=== PATIENT | female | born 1955 | race African-American/Black ===

== ENCOUNTER 2017-02-10 19:40 | Inpatient (IN) | payer MEDICAID, OTHER ==
[~2017-02-10] VITALS: Ht 160 cm; Wt 92.3 kg
[2017-02-10] MEDS ORDERED: niCARdipine-D5W 0.1MG/ML DRIP 200 ML IV STA (20:00)
[2017-02-10] MEDS ORDERED: NALOXONE 2 MG SYG IV ONE ×2 (20:00→22:00)
[2017-02-10] MEDS ORDERED: SOD CHLORIDE 0.9% 500 ML IV STA (20:00)
[2017-02-10 20:39] LABS: ADD SCAN DIFF NO
[2017-02-10 20:42] LABS: BASOPHILS % 0.2 % (0.0-2.0); HEMATOCRIT 45.1 % (37.0-47.0); HEMOGLOBIN 15.1 g/dl (12.0-16.0); LYMPHOCYTES # 2.3 10^3/ul (0.8-2.9); LYMPHOCYTES % 19.9 % (15.0-51.0); MEAN CORPUSCULAR HEMOGLOBIN 31.1 pg (29.0-33.0); MEAN CORPUSCULAR HGB CONC 33.5 g/dl (32.0-37.0); MEAN PLATELET VOLUME 11.7 fl (7.4-10.4); MONOCYTE # 0.8 10^3/ul (0.3-0.9); MONOCYTES % 6.8 % (0.0-11.0); NEUTROPHIL # 8.3 10^3/ul (1.6-7.5); NEUTROPHILS % 72.8 % (39.0-77.0); PLATELET COUNT 293 10^3/UL (140-415); RED BLOOD COUNT 4.85 10^6/ul (4.20-5.40); RED CELL DISTRIBUTION WIDTH 12.8 % (11.5-14.5); WHITE BLOOD COUNT 11.4 10^3/ul (4.8-10.8)
[2017-02-10 20:50] LABS: INR 1.03; PROTIME 13.5 Sec (12.2-14.2); PT RATIO 1.1
[2017-02-10 20:51] LABS: PARTIAL THROMBOPLASTIN TIME 23.8 Sec (25.0-35.0)
[2017-02-10 20:55] LABS: ALANINE AMINOTRANSFERASE 131 IU/L (13-69); ALBUMIN 5.2 g/dl (3.3-4.9); ALBUMIN/GLOBULIN RATIO 1.33; ALKALINE PHOSPHATASE 87 IU/L (42-121); ANION GAP 11 (8-16); ASPARTATE AMINO TRANSFERASE 94 IU/L (15-46); BILIRUBIN,INDIRECT 0.5 mg/dl (0-1.1); BILIRUBIN,TOTAL 0.5 mg/dl (0.2-1.3); BLOOD UREA NITROGEN 6 mg/dl (7-20); CALCIUM 10.1 mg/dl (8.4-10.2); CARBON DIOXIDE 25 mmol/L (21-31); CHLORIDE 109 mmol/L (97-110); CREATININE 0.66 mg/dl (0.44-1.00); GLUCOSE 131 mg/dl (70-220); POTASSIUM 3.9 mmol/L (3.5-5.1); SODIUM 141 mmol/L (135-144); TOTAL PROTEIN 9.1 g/dl (6.1-8.1)
[2017-02-10 20:56] LABS: ACETAMINOPHEN < 10.0 ug/ml (10.0-30.0); ETHANOL < 10.0 mg/dl; SALICYLATE < 1.0 mg/dl (5.0-30.0)
--- NOTE | 2017-02-10 20:57 | RADRPT ---
PROCEDURE: Chest x-ray CLINICAL INDICATION: Chest pain TECHNIQUE: Chest single view COMPARISON: None FINDINGS: The heart is normal in size. The pulmonary vessels are normal in caliber. The lungs are clear. Th e costophrenic angles are sharp. The visualized bony thorax is unremarkable. IMPRESSION: No acute cardiopulmonary disease. RPTAT: [facility] .Harjinder Bradley MD, Date Time Electronically viewed and signed by .Harjinder Bradley MD, MD on 02/10/2017 20:57 .W/
[2017-02-10 21:05] LABS: TROPONIN-I 0.027 ng/ml (0.00-0.12)
--- NOTE | 2017-02-10 21:13 | RADRPT ---
PROCEDURE: CT Brain without contrast. CLINICAL INDICATION: Headaches and medical clearance TECHNIQUE: A CT of the brain was performed on a GE [email or web address] 64-slice CT scanner utilizing axial imaging from the skull base through the vertex without IV contrast. Multiplanar reformatted images were made. Images were reviewed on a PACS workstation. The CTDIvol is 44.63 mGy and the DLP is 720 .23 mGycm. One of the following 3 dose reduction techniques were used: Automated exposure control; adjustment of the mA and/or kV according to patient size; or use of iterative reconstruction technique. COMPARISON: None available FINDINGS: There is no intracranial hemorrhage, mass effect, or midline shift. No extra-axial fluid collection is seen. The ventricles and sulci are normal in size and configuration. The density of the brain is normal, and the welsh white matter differentiation appears well-preserved. Mild intracranial internal controls manager al carotid artery calcifications are present. The visualized scalp and calvarium are normal. The bilateral orbits are normal. The bilateral para nasal sinuses, mastoid air cells and middle ear cavities are clear. IMPRESSION: 1. No evidence of acute intracranial hemorrhage, infarcts, or acute intracranial pathology. 2. Normal noncontrast head CT. 3. Mild atherosclerotic vascular disease RPTAT: [facility] .Alessandra Hernandes MD, MD Date Time Electronically viewed and signed by .Alessandra Hernandes MD, MD on 02/10/2017 21:13 .C/
[2017-02-10] MEDS ORDERED: FLUMAZENIL 0.5 MG INJ IV ONE (22:00)
[2017-02-10 22:39] LABS: CANNABINOIDS Positive (NEGATIVE)
[2017-02-10 22:42] LABS: BARBITURATES Negative (NEGATIVE); BENZODIAZEPINES Negative (NEGATIVE); COCAINE Negative (NEGATIVE); OPIATES Negative (NEGATIVE)
--- NOTE | 2017-02-10 23:02 | ERA ---
ER Documentation Chief Complaint Date/Time DATE: 02/10/17 TIME: 22:46 Chief Complaint anxious, htn, tachycardia, sleepy, pinpoint pupils, possible meth/opioid HPI This is 61-year-old female who is brought in by EMS for a cough for anxiety. When EMS arrived on the scene and they report the patient was acting anxious and is awake and alert and oriented. When bystanders inform them that there was some probable drug use by the patient. This is a noticed that the gentleman which was told to them to be the son of the patient went into the house and grabbed a big bag of individually wrap baggies with appeared to be drugs inside and ran out of the house. Patient in route had a decline in mental status where they said she had pinpoint pupils with decreased responsiveness. On arrival here. The patient is arousable to sternal rub and will say "stop it" and try to grab my hand. She will speak with me and does say she smoked some drugs tonight but she does not know what they was she says she does not know if it was meth or heroin or cocaine or a mixture. She is complaining of some chest pain and denies any headache. She says her chest "hurts" and cannot quantify it. She falls asleep rapidly after talking to me. ROS All systems reviewed and are negative except as per history of present illness. Medications Home Meds Unable to Obtain Active Prescriptions or Reported Meds Allergies Allergies: Coded Allergies: Unknown: Unable to obtain (Unverified , 02/10/17) FmHx Unable to obtain due to mental status Physical Exam Vitals Vital Signs Date Time Temp Pulse Resp B/P Pulse Ox O2 Delivery O2 Flow Rate FiO2 02/10/17 22:21 118 194/96 02/10/17 22:00 118 230/111 02/10/17 21:45 122 212/114 02/10/17 21:30 122 22 226/112 02/10/17 21:15 127 230/116 02/10/17 21:00 126 227/141 02/10/17 20:45 130 219/96 02/10/17 20:31 98.8 16 251/125 98 02/10/17 20:29 Nasal Cannula 2 02/10/17 20:00 98.8 123 16 251/125 98 Physical Exam Const: Well-developed, well-nourished Head: Atraumatic, normocephalic Eyes: Normal Conjunctiva, PERRLA, EOMI, normal sclera, no nystagmus ENT: Normal External Ears, Nose and Mouth, moist mucus membranes. Neck: Full range of motion. No meningismus, no lymphadenopathy. Resp: Clear to auscultation bilaterally, no wheezing, rhonchi, rales Cardio: Tachycardia, no murmurs, S1 S2 present Abd: Soft, non tender x 4, non distended. Normal bowel sounds, no guarding or rebound, no pulsitile abdominal masses or bruits Skin: No petechiae or rashes, no ecchymosis , no maculopapular rash Back: No midline or flank tenderness Ext: No cyanosis, or edema, FROM x 4, normal inspection, neurovascularly intact x 4 Neur: Moves all fours, arousable to sternal rub answers questions falls back asleep quickly Psych: [Unable to assess Result Diagram: 02/10/17200402/10/172004 Results 24 hrs Laboratory Tests Test 02/10/17 20:05 02/10/17 21:55 White Blood Count 11.410^3/ul Red Blood Count 4.8510^6/ul Hemoglobin 15.1g/dl Hematocrit 45.1% Mean Corpuscular Volume 93.0fl Mean Corpuscular Hemoglobin 31.1pg Mean Corpuscular Hemoglobin Concent 33.5g/dl Red Cell Distribution Width 12.8% Platelet Count 12256^3/UL Mean Platelet Volume 11.7fl Neutrophils % 72.8% Lymphocytes % 19.9% Monocytes % 6.8% Eosinophils % 0.0% Basophils % 0.2% Nucleated Red Blood Cells % 0.0/100WBC Neutrophils # 8.310^3/ul Lymphocytes # 2.310^3/ul Monocytes # 0.810^3/ul Eosinophils # 0.010^3/ul Basophils # 0.010^3/ul Nucleated Red Blood Cells # 0.010^3/ul Prothrombin Time 13.5Sec Prothrombin Time Ratio 1.1 INR International Normalized Ratio 1.03 Activated Partial Thromboplast Time 23.8Sec Sodium Level 141mmol/L Potassium Level 3.9mmol/L Chloride Level 109mmol/L Carbon Dioxide Level 25mmol/L Anion Gap 11 Blood Urea Nitrogen 6mg/dl Creatinine 0.66mg/dl Glucose Level 131mg/dl Calcium Level 10.1mg/dl Total Bilirubin 0.5mg/dl Direct Bilirubin 0.00mg/dl Indirect Bilirubin 0.5mg/dl Aspartate Amino Transf (AST/SGOT) 94IU/L Alanine Aminotransferase (ALT/SGPT) 131IU/L Alkaline Phosphatase 87IU/L Troponin I 0.027ng/ml Total Protein 9.1g/dl Albumin 5.2g/dl Globulin 3.90g/dl Albumin/Globulin Ratio 1.33 Salicylates Level < 1.0mg/dl Acetaminophen Level < 10.0ug/ml Ethyl Alcohol Level < 10.0mg/dl Urine Opiates Screen Negative Urine Barbiturates Negative Urine Amphetamines Screen Negative Urine Benzodiazepines Screen Negative Urine Cocaine Screen Negative Urine Cannabinoids Positive Current Medications Medications (Trade) Dose Ordered Sig/Jose Luis Route PRN Reason Start Time Stop Time Status Last Admin Dose Admin Sodium Chloride (NS) 500 ml @ 500 mls/hr Q1H STAT IV 02/10/17 20:00 02/10/17 20:59 DC 02/10/17 20:21 Naloxone HCl 1 mg 1 mg ONCE ONCE IV 02/10/17 20:00 02/10/17 20:09 DC 02/10/17 20:20 Nicardipine HCl (Cardene Iv) 200 ml @ 50 mls/hr ONCE STAT IV 02/10/17 20:00 02/10/17 23:59 02/10/17 20:20 Naloxone HCl (Narcan) 1 mg ONCE ONCE IV 02/10/17 22:00 02/10/17 22:01 DC 02/10/17 22:08 Flumazenil (Romazicon) 0.5 mg ONCE ONCE IV 02/10/17 22:00 02/10/17 22:01 DC 02/10/17 22:08 Procedures/MDM PROCEDURE: CT Brain without contrast. CLINICAL INDICATION: Headaches and medical clearance TECHNIQUE: A CT of the brain was performed on a [employer] 64-slice CT scanner utilizing axial imaging from the skull base through the vertex without IV contrast. Multiplanar reformatted images were made. Images were reviewed on a PACS workstation. The CTDIvol is 44.63 mGy and the DLP is 720.23 mGycm. One of the following 3 dose reduction techniques were used: Automated exposure control; adjustment of the mA and/or kV according to patient size; or use of iterative reconstruction technique. COMPARISON: None available FINDINGS: There is no intracranial hemorrhage, mass effect, or midline shift. No extra- axial fluid collection is seen. The ventricles and sulci are normal in size and configuration. The density of the brain is normal, and the welsh white matter differentiation appears well-preserved. Mild intracranial internal carotid artery calcifications are present. The visualized scalp and calvarium are normal. The bilateral orbits are normal. The bilateral paranasal sinuses, mastoid air cells and middle ear cavities are clear. IMPRESSION: 1. No evidence of acute intracranial hemorrhage, infarcts, or acute intracranial pathology. 2. Normal noncontrast head CT. 3. Mild atherosclerotic vascular disease RPTAT: [facility] .Alessandra Hernandes MD, MD Date Time Electronically viewed and signed by .Alessandra Hernandes MD, MD on 02/10/2017 21: 13 .C/ CC: SANGEETHA COSTA DO PROCEDURE: Chest x-ray CLINICAL INDICATION: Chest pain TECHNIQUE: Chest single view COMPARISON: None FINDINGS: The heart is normal in size. The pulmonary vessels are normal in caliber. The lungs are clear. The costophrenic angles are sharp. The visualized bony thorax is unremarkable. IMPRESSION: No acute cardiopulmonary disease. RPTAT: .Harjinder Bradley MD, MD Date Time Electronically viewed and signed by .Harjinder Bradley MD, on 02/10/2017 20:57 .W/ CC: SANGEETHA COSTA DO EKG: Rate/Rhythm: Sinus tachycardia with PACs QRS, ST, QT: NORMAL MA, QRS, QT] Impression: Sinus tachycardia Patient was given Narcan 1 mg IV 2 without much response as well as flumazenil IV with no response. Patient's drug screen is negative for everything but but marijuana. Drug screen may not be showing the results are truly there as it may takes a few hours for the drugs to show up She is on a Cardene drip for blood pressure control and is maxed out her blood pressure still hovering around 195-205 systolic with diastolics of 86-100 Patient's mental status could be from hypertensive encephalopathy or drug abuse. CAT scan shows no acute process may require MRI tomorrow. We will admit to the ICU Critical Care Time: 30 minutes Treatments/Evaluations: Close monitoring and treatment of unstable vital signs, cardiorespiratory, and neurologic status, while maintaining tight balance of fluid, respiratory, and cardiac interventions. This time includes discussing the case with the patient and the patient's family. This time does not include all procedures stated elsewhere in this record. This time also includes reviewing old records, labs and radiological studies. This time includes examining and re-examining the patient. Additionally, this time also includes arranging care with admitting and consulting physicians. Departure Diagnosis: Primary Impression: Hypertensive crisis Additional Impression: Substance abuse Condition: Stable SANGEETHA COSTA DO Feb 10, 2017 22:58
[2017-02-10] MEDS ORDERED: hydrALAzine 20 MG INJ IV ONE (23:30)
[2017-02-11] VITALS (38 sets, daily range): BP systolic 98–180; BP diastolic 55–135; PULSE 72–132; RESP 13–26; TEMP 98.3; Ht 160 cm; Wt 92.3 kg
[2017-02-11] MEDS ORDERED: hydrALAzine 20 MG INJ IV PRN (00:30)
[2017-02-11] MEDS ORDERED: ONDANSETRON 4 MG INJ IV PRN (00:30)
[2017-02-11] MEDS ORDERED: ACETAMINOPHEN 650 MG SUPP PR PRN (00:30)
[2017-02-11] MEDS ORDERED: NICARDIPINE IV SCH (00:30)
[2017-02-11] MEDS ORDERED: DEXTROSE 5% IV SCH (00:30)
[2017-02-11] MEDS ORDERED: LORAZEPAM 2 MG INJ IM PRN (00:30)
[2017-02-11] MEDS ORDERED: niCARdipine-D5W 0.1MG/ML DRIP 200 ML IV SCH (00:30)
[2017-02-11] MEDS: hydrALAzine 20 MG INJ IV PRN ×2 (03:05→17:54)
--- NOTE | 2017-02-11 05:00 | HP ---
Date/Time of Note Date/Time of Note DATE: 02/11/17 TIME: 04:46 Assessment/Plan VTE Prophylaxis VTE Prophylaxis Intervention: SCD's Lines/Catheters IV [facility]from [facility] Peripheral IV Urinary Cath still in place: Yes (Clinical condition) Reason Cath still needed: other (indicate) (Clinical condition) Assessment/Plan Chief Complaint/Hosp Course This is a 61-year-old female being admitted to the ICU floor for: #1 altered mental status: This likely appears to be secondary to acute drug intoxication. At the current time on her urine tox screen she is only positive for marijuana. However she was mentioning multiple other drugs to the ED physician. At the current time we will repeat a urine drug screen within the next 12 hours to assess to see if any further medications or drugs show up. Based on the patient's clinical presentation at the present time I think it is best for the patient to be admitted to the ICU for closer monitoring including airway monitoring. She did receive Narcan and flumazenil in the ED however he did not appear to improve her mental status. CT scan of the brain was negative for any acute process. #2 hypertensive crisis: At the current time the cause of her elevated blood pressure is not known however it could be recreational drug related. Will continue the Cardene drip that was started in the ED. Provide as needed antihypertensives medications. Will hold off on using any beta blockers with possible concern for cocaine use. Patient's first urine drug screen was negative for cocaine however will recheck it within 12 hours. #3 transaminitis: Likely could be an acute process related to possible drug intoxication. Will repeat LFTs in the a.m. Will check a hepatitis panel. And consider right upper quadrant ultrasound if indicated. #4 leukocytosis: White blood cell count is 11 which is mildly elevated. This likely could be reactive. We will continue to follow. Patient currently does not have any fevers. #5 DVT and GI prophylaxis: SCDs, Protonix Further treatment strategy will be implemented as per the clinical course. Will attempt to obtain further history from the patient provided that she improves and will also try to contact the family. Problems: HPI/ROS Admit Date/Time Admit Date/Time Feb 11, 2017 at 00:16 Hx of Present Illness Chief complaint: Anxiety, change in mental status This is 61-year-old female who is brought in by EMS for a cough for anxiety. When EMS arrived on the scene and they report the patient was acting anxious and is awake and alert and oriented. When bystanders inform them that there was some probable drug use by the patient. This is a noticed that the gentleman which was told to them to be the son of the patient went into the house and grabbed a big bag of individually wrap baggies with appeared to be drugs inside and ran out of the house. Patient in route had a decline in mental status where they said she had pinpoint pupils with decreased responsiveness. On arrival here. The patient is arousable to sternal rub and will say "stop it" and try to grab my hand. She will speak with me and does say she smoked some drugs tonight but she does not know what they was she says she does not know if it was meth or heroin or cocaine or a mixture. She is complaining of some chest pain and denies any headache. She says her chest "hurts" and cannot quantify it. The above history was obtained from the ED physician and ED medical record. The patient upon my examination was arousable but not cooperative and providing a history. Allergies unable to obtain Medications: Unable to obtain ROS Subjective hx not possible: pt non-verbal, pt critical PMH/Family/Social Past Medical History Unable to obtain secondary to patient's medical condition Past Surgical History Unable to obtain secondary medical condition Family History Significant Family History: other (Unable to obtain secondary medical condition ) Social History Unable to obtain secondary medical condition Smoking Status: Unknown if ever smoked Exam/Review of Systems Vital Signs Vitals Vital Signs Date Time Temp Pulse Resp B/P Pulse Ox O2 Delivery O2 Flow Rate FiO2 02/11/17 03:30 115 26 136/72 100 Room Air 02/11/17 02:15 98.3 02/10/17 20:29 2 Intake and Output 02/10/17 02/10/17 02/11/17 15:00 23:00 07:00 Output Total 1450 ml Balance -1450 ml Exam Exam General: Patient is somnolent. She is arousable however she goes back to sleep quickly. HEENT: Atraumatic, normocephalic. Pupils are reactive and do not appear to be pinpoint. Neck: Supple with full range of motion. Chest: Nontender Lungs: Clear to auscultation bilaterally no crackles rales or wheezing Heart: Normal S1-S2, Regular rhythm and rate. Abdomen: Soft , nontender, nondistended , bowel sounds are present. No guarding no rebound tenderness , No masses or organomegaly. Extremities: Normal to inspection, no edema no cyanosis Neurologic: Patient is somnolent, she is arousable however she goes back to sleep quickly. Additional Comments PROCEDURE: CT Brain without contrast. CLINICAL INDICATION: Headaches and medical clearance TECHNIQUE: A CT of the brain was performed on a GE [employer] 64-slice CT scanner utilizing axial imaging from the skull base through the vertex without IV contrast. Multiplanar reformatted images were made. Images were reviewed on a PACS workstation. The CTDIvol is 44.63 mGy and the DLP is 720.23 mGycm. One of the following 3 dose reduction techniques were used: Automated exposure control; adjustment of the mA and/or kV according to patient size; or use of iterative reconstruction technique. COMPARISON: None available FINDINGS: There is no intracranial hemorrhage, mass effect, or midline shift. No extra- axial fluid collection is seen. The ventricles and sulci are normal in size and configuration. The density of the brain is normal, and the welsh white matter differentiation appears well-preserved. Mild intracranial internal carotid artery calcifications are present. The visualized scalp and calvarium are normal. The bilateral orbits are normal. The bilateral paranasal sinuses, mastoid air cells and middle ear cavities are clear. IMPRESSION: 1. No evidence of acute intracranial hemorrhage, infarcts, or acute intracranial pathology. 2. Normal noncontrast head CT. 3. Mild atherosclerotic vascular disease RPTAT: [facility] .Alessandra Hernandes MD, MD Date Time Electronically viewed and signed by .Alessandra Hernandes MD, MD on 02/10/2017 21: 13 .C/ CC: SANGEETHA COSTA DO PROCEDURE: Chest x-ray CLINICAL INDICATION: Chest pain TECHNIQUE: Chest single view COMPARISON: None FINDINGS: The heart is normal in size. The pulmonary vessels are normal in caliber. The lungs are clear. The costophrenic angles are sharp. The visualized bony thorax is unremarkable. IMPRESSION: No acute cardiopulmonary disease. RPTAT: .Harjinder Bradley MD, Date Time Electronically viewed and signed by .Harjinder Bradley MD, on 02/10/2017 20:57 .W/ CC: SANGEETHA COSTA DO EKG: Rate/Rhythm: Sinus tachycardia with PACs QRS, ST, QT: NORMAL [place], QRS, QT] As per ED physician documentation Labs Result Diagram: 02/10/17200402/10/172004 Medications Medications Current Medications Ondansetron HCl (Zofran Inj) 4 mg Q6H PRN IV NAUSEA AND/OR VOMITING; Start 02/11 at 00:30 Acetaminophen (Tylenol Supp) 650 mg Q4H PRN [place] PAIN LEVEL 1-3 OR FEVER; Start 02/11/17 at 00:30 Pantoprazole (Protonix Iv) 40 mg DAILY@06 IV ; Start 02/11/17 at 06:00 Lorazepam 1 mg 1 mg Q6H PRN IM AGITATION; Start 02/11/17 at 00:30 Nicardipine HCl/ Dextrose (Cardene Iv/D5W) 250 ml @ 50 mls/hr TITRATE IV Last administered on 02/11/17 04:08; Admin Dose 50 MLS/HR; Start 02/11/17 at 00:30 Hydralazine HCl (Apresoline) 10 mg Q4H PRN IV ELEVATED BLOOD PRESSURE Last administered on 02/11/17 03:05; Admin Dose 10 MG; Start 02/11/17 at 02:30 GLORY NAIR Feb 11, 2017 04:57
[2017-02-11] MEDS: PANTOPRAZOLE 40 MG INJ IV SCH (05:34)
[2017-02-11 05:36] LABS: BARBITURATES Negative (NEGATIVE); BENZODIAZEPINES Negative (NEGATIVE); CANNABINOIDS Positive (NEGATIVE); COCAINE Negative (NEGATIVE); OPIATES Negative (NEGATIVE)
[2017-02-11 06:41] LABS: ADD SCAN DIFF NO
[2017-02-11 06:55] LABS: BASOPHILS % 0.2 % (0.0-2.0); EOSINOPHILS % 0.1 % (0.0-7.0); HEMATOCRIT 42.8 % (37.0-47.0); HEMOGLOBIN 14.5 g/dl (12.0-16.0); LYMPHOCYTES # 2.8 10^3/ul (0.8-2.9); LYMPHOCYTES % 24.7 % (15.0-51.0); MEAN CORPUSCULAR HEMOGLOBIN 31.6 pg (29.0-33.0); MEAN CORPUSCULAR HGB CONC 33.9 g/dl (32.0-37.0); MEAN CORPUSCULAR VOLUME 93.2 fl (82.0-101.0); MEAN PLATELET VOLUME 12.3 fl (7.4-10.4); MONOCYTE # 0.9 10^3/ul (0.3-0.9); MONOCYTES % 7.9 % (0.0-11.0); NEUTROPHIL # 7.7 10^3/ul (1.6-7.5); NEUTROPHILS % 66.8 % (39.0-77.0); PLATELET COUNT 272 10^3/UL (140-415); RED BLOOD COUNT 4.59 10^6/ul (4.20-5.40); RED CELL DISTRIBUTION WIDTH 13.2 % (11.5-14.5); WHITE BLOOD COUNT 11.5 10^3/ul (4.8-10.8)
[2017-02-11 07:11] LABS: ALBUMIN 4.6 g/dl (3.3-4.9); ALBUMIN/GLOBULIN RATIO 1.24; BILIRUBIN,INDIRECT 0.5 mg/dl (0-1.1); BILIRUBIN,TOTAL 0.5 mg/dl (0.2-1.3); CALCIUM 9.5 mg/dl (8.4-10.2); CREATININE 0.6 mg/dl (0.44-1.00); POTASSIUM 3.6 mmol/L (3.5-5.1); TOTAL PROTEIN 8.3 g/dl (6.1-8.1)
[2017-02-11 07:21] LABS: CK-MB 3.8 ng/ml (0.0-2.4); TROPONIN-I 0.092 ng/ml (0.00-0.12)
[2017-02-11 08:23] LABS: HAAIG REFLEX REFLEX FILED
[2017-02-11 09:19] LABS: HEPATITIS B CORE ANTIBODY NEGATIVE (NEGATIVE)
--- NOTE | 2017-02-11 10:21 | PN ---
Date/Time of Note Date/Time of Note DATE: 02/11/17 TIME: 10:17 Assessment/Plan VTE Prophylaxis VTE Prophylaxis Intervention: SCD's Lines/Catheters IV Catheter Type (from Nrs): Saline Lock Urinary Cath still in place: Yes Reason Cath still needed: other (indicate) Assessment/Plan Chief Complaint/Hosp Course Assessment and plan 1. Uncontrolled hypertension Is likely secondary to noncompliance with blood pressure medication Status post nicardipine drip Will start home medication and continue to monitor 2. Transaminitis Follow-up liver ultrasound, likely secondary to hepatitis C Continue to monitor liver function test 2. History of THC use Education was provided regarding the risk 3. Hepatitis C Continue to monitor We will continue monitor patient closely for recommendation management treatment as clinical course Problems: Subjective 24 Hr Interval Summary Free Text/Dictation Patient is more awake and alert Denies of any chest pain or shortness of breath Denies of any abdominal discomfort No nausea vomiting diarrhea Exam/Review of Systems Vital Signs Vitals Vital Signs Date Time Temp Pulse Resp B/P Pulse Ox O2 Delivery O2 Flow Rate FiO2 02/11/17 08:00 88 02/11/17 08:00 97.7 15 123/79 97 Room Air 02/10/17 20:29 2 Intake and Output 02/10/17 02/10/17 02/11/17 15:00 23:00 07:00 Intake Total 150 ml Output Total 1550 ml Balance -1400 ml Exam General: The patient is well-developed, Not in acute distress. HEENT: Atraumatic, normocephalic. The pupils are equal and round . Neck: Supple with full range of motion. Chest: Normal expansion of the thorax during inspiration Lungs: Clear to auscultation bilaterally Heart: Normal S1-S2, Regular rhythm and rate. Abdomen: Soft , nontender, nondistended , bowel sounds are present. Extremities: Normal to inspection, no edema no cyanosis Neurologic: Normal mental status,The patient is awake, alert and oriented . Results Result Diagram: 02/11/17 0500 02/11/17 0500 Results 24 hrs Laboratory Tests Test 02/10/17 20:05 02/10/17 21:55 02/11/17 05:00 02/11/17 06:00 White Blood Count 11.4 H 11.5 H Red Blood Count 4.85 4.59 Hemoglobin 15.1 14.5 Hematocrit 45.1 42.8 Mean Corpuscular Volume 93.0 93.2 Mean Corpuscular Hemoglobin 31.1 31.6 Mean Corpuscular Hemoglobin Concent 33.5 33.9 Red Cell Distribution Width 12.8 13.2 Platelet Count 293 272 Mean Platelet Volume 11.7 H 12.3 H Neutrophils % 72.8 66.8 Lymphocytes % 19.9 24.7 Monocytes % 6.8 7.9 Eosinophils % 0.0 0.1 Basophils % 0.2 0.2 Nucleated Red Blood Cells % 0.0 0.0 Neutrophils # 8.3 H 7.7 H Lymphocytes # 2.3 2.8 Monocytes # 0.8 0.9 Eosinophils # 0.0 0.0 Basophils # 0.0 0.0 Nucleated Red Blood Cells # 0.0 0.0 Prothrombin Time 13.5 Prothrombin Time Ratio 1.1 INR International Normalized Ratio 1.03 Activated Partial Thromboplast Time 23.8 L Sodium Level 141 145 H Potassium Level 3.9 3.6 Chloride Level 109 109 Carbon Dioxide Level 25 24 Anion Gap 11 16 Blood Urea Nitrogen 6 L 6 L Creatinine 0.66 0.60 Glucose Level 131 116 Calcium Level 10.1 9.5 Total Bilirubin 0.5 0.5 Direct Bilirubin 0.00 0.00 Indirect Bilirubin 0.5 0.5 Aspartate Amino Transf (AST/SGOT) 94 H 81 H Alanine Aminotransferase (ALT/SGPT) 131 H 116 H Alkaline Phosphatase 87 75 Troponin I 0.027 0.092 Total Protein 9.1 H 8.3 H Albumin 5.2 H 4.6 Globulin 3.90 H 3.70 H Albumin/Globulin Ratio 1.33 1.24 Salicylates Level < 1.0 L Acetaminophen Level < 10.0 L Ethyl Alcohol Level < 10.0 Urine Opiates Screen Negative Negative Urine Barbiturates Negative Negative Urine Amphetamines Screen Negative Negative Urine Benzodiazepines Screen Negative Negative Urine Cocaine Screen Negative Negative Urine Cannabinoids Positive Positive Creatine Kinase 201 H Creatine Kinase Index 1.9 Creatinine Kinase MB (Mass) 3.80 H Hepatitis B Surface Antigen NEGATIVE Hepatitis B Core Total Antibody NEGATIVE Hepatitis C Antibody REACTIVE H Medications Medications Current Medications Ondansetron HCl (Zofran Inj) 4 mg Q6H PRN IV NAUSEA AND/OR VOMITING; Start 02/11 at 00:30 Acetaminophen (Tylenol Supp) 650 mg Q4H PRN [place] PAIN LEVEL 1-3 OR FEVER; Start 02/11/17 at 00:30 Pantoprazole (Protonix Iv) 40 mg DAILY@06 IV Last administered on 02/11/17 05: 34; Admin Dose 40 MG; Start 02/11/17 at 06:00 Lorazepam 1 mg 1 mg Q6H PRN IM AGITATION; Start 02/11/17 at 00:30 Nicardipine HCl/ Dextrose (Cardene Iv/D5W) 250 ml @ 50 mls/hr TITRATE IV Last administered on 02/11/17 04:08; Admin Dose 50 MLS/HR; Start 02/11/17 at 00:30 Hydralazine HCl (Apresoline) 10 mg Q4H PRN IV ELEVATED BLOOD PRESSURE Last administered on 02/11/17 03:05; Admin Dose 10 MG; Start 02/11/17 at 02:30 BRENDA RICARDO MD Feb 11, 2017 10:21
[2017-02-11] MEDS: METOPROLOL 25 MG TAB PO SCH ×2 (11:21→20:30)
[2017-02-11 12:36] LABS: CK-MB 3.92 ng/ml (0.0-2.4)
[2017-02-11 12:43] LABS: TROPONIN-I 0.337 ng/ml (0.00-0.12)
[2017-02-11] MEDS: DOCUSATE SODIUM 100 MG CAP PO SCH (20:27)
[2017-02-11] MEDS: BISACODYL (EC) 5 MG TAB PO SCH (20:30)
[2017-02-12] VITALS (9 sets, daily range): BP systolic 141–175; BP diastolic 67–86; PULSE 66–89; RESP 16–20
[2017-02-12] MEDS: PANTOPRAZOLE 40 MG INJ IV SCH (05:25)
[2017-02-12] MEDS: DOCUSATE SODIUM 100 MG CAP PO SCH (09:00)
[2017-02-12] MEDS: BISACODYL (EC) 5 MG TAB PO SCH (09:00)
[2017-02-12] MEDS: METOPROLOL 25 MG TAB PO SCH (09:05)
[2017-02-12] MEDS ORDERED: ASPIRIN 81 MG TAB PO SCH (11:00)
--- NOTE | 2017-02-12 11:23 | CONS ---
Date/Time of Note Date/Time of Note DATE: 02/12/17 TIME: 11:15 Assessment/Plan Assessment/Plan Chief Complaint/Hosp Course NSTEMI: Likely type II in setting of drug abuse and HTN emergency. Trop 0.3 and not trended further. Assuming it is lower, would recommend echo and stress test (inpt vs outpt) Drug abuse: tox only with marijuana but pt admits to hashish as well HTN emergency: resolved Altered mentation: secondary to drug use -check another trop -echo -ASA, statin -Pt may sign out AMA. She has poor insight but is alert, oriented and understands the risks of signing out AMA including MT and . Problems: Consultation Date/Type/Reason Admit Date/Time Feb 11, 2017 at 00:16 Date of Consultation: Feb 12, 2017 Type of Consultation: Cardiology Reason for Consultation NSTEMI Referring Provider: BRENDA RICARDO MD Hx of Present Illness 61 yo F with a h/o HTN, drug abuse, who presented due to altered mentation and hypertensive emergency. The pt was initially on a nicardipine drip and eventually switched to PO meds. She eventually was coherent and currently would like to leave AMA. She was noted to have elevated trops up to 0.3 (not trended further) for which cardiology was consulted. Per notes she may have had chest pain but the pt denies this. She actually does not remember what happened but she tells me she came to the hospital to have her son evaluated (brought in by paramedics). She tells me that she only had medical marijuana and hashish. She has poor insight but is alert, oriented and understands the risks of signing out AMA including MT and . per HPI Past Medical History per hPI Social History Smoking Status: Unknown if ever smoked Exam/Review of Systems Vital Signs Vitals Vital Signs Date Time Temp Pulse Resp B/P Pulse Ox O2 Delivery O2 Flow Rate FiO2 02/12/17 08:46 68 02/12/17 08:00 98.2 16 152/72 100 02/11/17 16:00 Room Air 02/10/17 20:29 2 Intake and Output 02/11/17 02/11/17 02/12/17 15:00 23:00 07:00 Intake Total 120 ml Output Total 290 ml 30 ml 300 ml Balance -290 ml -30 ml -180 ml Exam Constitutional: alert, oriented Psych: no complaints Head: normocephalic Eyes: nl conjunctiva ENMT: nl external ears & nose Neck: supple, No jvd Respiratory: clear to auscultation, No crackles/rales Cardiovascular: regular rate and rhythm, No edema Gastrointestinal: non-tender, soft Neurological: nl mental status, nl speech Skin: No rash or lesions Results EKG: sinus, no ST changes Result Diagram: 02/11/17 0500 02/11/17 0500 Results 24 hrs Laboratory Tests Test 02/11/17 11:46 Creatine Kinase 183 Creatine Kinase Index 2.1 Creatinine Kinase MB (Mass) 3.92 H Troponin I 0.337 *H Medications Medications Current Medications Ondansetron HCl (Zofran Inj) 4 mg Q6H PRN IV NAUSEA AND/OR VOMITING; Start 02/11 at 00:30 Acetaminophen (Tylenol Supp) 650 mg Q4H PRN DC PAIN LEVEL 1-3 OR FEVER; Start 02/11/17 at 00:30 Pantoprazole (Protonix Iv) 40 mg DAILY@06 IV Last administered on 02/12/17 05: 25; Admin Dose 40 MG; Start 02/11/17 at 06:00 Lorazepam (Ativan) 1 mg Q6H PRN IM AGITATION; Start 02/11/17 at 00:30 Hydralazine HCl (Apresoline) 10 mg Q4H PRN IV ELEVATED BLOOD PRESSURE Last administered on 02/11/17 17:54; Admin Dose 10 MG; Start 02/11/17 at 02:30 Metoprolol Tartrate (Lopressor) 25 mg BID PO Last administered on 02/12/17 09: 05; Admin Dose 25 MG; Start 02/11/17 at 10:30 Docusate Sodium (Colace) 100 mg BID PO Last administered on 02/11/17 20:27; Admin Dose 100 MG; Start 02/11/17 at 21:00 Bisacodyl (Dulcolax) 10 mg DAILY PO Last administered on 02/11/17 20:30; Admin Dose 10 MG; Start 02/11/17 at 20:30 Simethicone (Mylicon) 80 mg TID PRN PO DISTENSION/GAS/BLOATING Last administered on 02/11/17 20:27; Admin Dose 80 MG; Start 02/11/17 at 20:30 Aspirin (Aspirin) 81 mg DAILY PO ; Start 02/12/17 at 11:00 Atorvastatin Calcium (Lipitor) 40 mg HS PO ; Start 02/12/17 at 21:00 PORTIA JERONIMO Feb 12, 2017 11:23
--- NOTE | 2017-02-12 12:08 | RADRPT ---
Echocardiogram Report Patient Name: JD GIBSON Gender: Female Date: 1955 Study Date: 12-Feb-2017 Mechanical Expert: Vaishali [facility] Location: [id number] Ref. Physician: PORTIA KEN Quality: Adequate Procedures: Transthoracic echocardiogram with complete 2D, M-Mode, and doppler examination. Indications: NSTEMI. 2D/M Mode Doppler Measurement Value Normal Ranges Measurement Value Normal Ranges LVIDd 2D 4.2 3.5 - 5.6 cm AV Peak Damon 1.2 m/sec LVIDs 2D 2.8 2.1 - 4.1 cm AV Peak PG 6.0 mmHg LVPWd 2D 1.2 0.6 - 1.1 cm LVOT Peak Damon 1.0 m/sec IVSd 2D 1.2 0.6 - 1.1 cm LVOT Peak PG 4.0 mmHg AoR Diam 2D 2.7 2.0 - 3.7 cm MV E Peak Damon 0.9 m/sec EDV 2D 77.7 cm3 MV A Peak Damon 1.1 m/sec ESV 2D 21.0 cm3 MV E/A 0.8 LA Dimen 2D 3.6 2.3 - 4.0 cm MV Decel Time 206 msec MV Decel Costilla 4 MV E/A 0.8 Findings Left Ventricle: Normal left ventricular systolic function. Normal left ventricular cavity size. Left ventricular wall thickness upper limits of normal. Ejection fraction is visually estimated at 65 %. Tissue Doppler/Mitral Doppler indices are consistent with impaired relaxation (Stage I diastolic dysfunction). Right Ventricle: Normal right ventricular size. Normal right ventricular systolic function. Left Atrium: There is mild enlargement of left atrium. Right Atrium: The right atrium is normal in size. Mitral Valve: Mitral valve leaflets appear mildly thickened. Trace mitral regurgitation. Aortic Valve: Normal appearance of the aortic valve. No significant aortic stenosis or insufficiency. Tricuspid Valve: Normal appearance and function of the tricuspid valve with trace physiologic regurgitation. Unable to obtain RVSP due to minimal presence of tricuspid regurgitation. Pulmonic Valve: Pulmonic valve not well visualized. No evidence of pulmonic regurgitation. Pericardium: Normal pericardium with no significant pericardial effusion. Aorta: Normal aortic root. IVC: Normal size and normal respiratory collapse consistent with normal right atrial pressure. Conclusions Normal left ventricular systolic function. Normal left ventricular cavity size. Left ventricular wall thickness upper limits of normal. Ejection fraction is visually estimated at 65 %. Tissue Doppler/Mitral Doppler indices are consistent with impaired relaxation (Stage I diastolic dysfunction). No significant valvular stenosis or regurgitation seen. Unable to obtain RVSP due to minimal presence of tricuspid regurgitation. RA pressure is 3 mmHg. Electronically Signed By: Portia Ken 12-Feb-2017 12:07:28 -0700 Patient Name: JD GIBSON Study Date: 12-Feb-2017 [id number]
--- NOTE | 2017-02-12 13:35 | PN ---
Date/Time of Note Date/Time of Note DATE: 02/12/17 TIME: 13:32 Assessment/Plan VTE Prophylaxis VTE Prophylaxis Intervention: heparin Lines/Catheters IV [facility]from [facility] Saline Lock Urinary Cath still in place: No Assessment/Plan Assessment/Plan 61 yo F admitted for chest pain in the setting of markedly elevated blood pressure most likely 2/2 medication nonadherence also now with NSTEMI/ troponinemia suspect demand from elevated BP. Also with AMS on admit, now resolved. Suspect 2/2 markedly elevated BP v hashish pt consumed prior to admission #NSTEMI/HTN urgency BP now improved cont bb stop PRN hydralazine (last dose 5pm last night) repeat troponin cardiology on board for stress test consideration #transaminitis: Hep C Ab + check liver US Prophx: SQH Subjective 24 Hr Interval Summary Free Text/Dictation Received call from nurse at 11am pt wanted to leave AMA. Came to see patient, metal numerical control programmer already present. Pt stated she wanted to leave because she "felt better." Both metal numerical control programmer and I discussed our concerns at length, notably that elevated troponin concerning for damage to pt's heart, which could be permanent and that leaving prior to completion of work up could cause heart attack and . Pt voiced understanding and amenable to staying for now, though at the end of the encounter asked "I can still leave later today if I want?" Reports only drug she uses is THC Re subsatnce abuse, states she accidentally purchased THC with hashish from her dispensary which she consumed prior to admission Exam/Review of Systems Vital Signs Vitals Vital Signs Date Time Temp Pulse Resp B/P Pulse Ox O2 Delivery O2 Flow Rate FiO2 02/12/17 12:28 76 02/12/17 12:00 98.2 18 175/86 100 02/11/17 16:00 Room Air 02/10/17 20:29 2 Intake and Output 02/11/17 02/11/17 02/12/17 15:00 23:00 07:00 Intake Total 120 ml Output Total 290 ml 30 ml 300 ml Balance -290 ml -30 ml -180 ml Exam nad, sitting up on at edge of bed no mrg lungs clear abd soft no rashes Results Result Diagram: 02/11/17 0500 02/11/17 0500 Medications Medications Current Medications Ondansetron HCl (Zofran Inj) 4 mg Q6H PRN IV NAUSEA AND/OR VOMITING; Start 02/11 at 00:30 Acetaminophen (Tylenol Supp) 650 mg Q4H PRN [place] PAIN LEVEL 1-3 OR FEVER; Start 02/11/17 at 00:30 Pantoprazole (Protonix Iv) 40 mg DAILY@06 IV Last administered on 02/12/17 05: 25; Admin Dose 40 MG; Start 02/11/17 at 06:00 Lorazepam (Ativan) 1 mg Q6H PRN IM AGITATION; Start 02/11/17 at 00:30 Hydralazine HCl (Apresoline) 10 mg Q4H PRN IV ELEVATED BLOOD PRESSURE Last administered on 02/11/17 17:54; Admin Dose 10 MG; Start 02/11/17 at 02:30 Metoprolol Tartrate (Lopressor) 25 mg BID PO Last administered on 02/12/17 09: 05; Admin Dose 25 MG; Start 02/11/17 at 10:30 Docusate Sodium (Colace) 100 mg BID PO Last administered on 02/11/17 20:27; Admin Dose 100 MG; Start 02/11/17 at 21:00 Bisacodyl (Dulcolax) 10 mg DAILY PO Last administered on 02/11/17 20:30; Admin Dose 10 MG; Start 02/11/17 at 20:30 Simethicone (Mylicon) 80 mg TID PRN PO DISTENSION/GAS/BLOATING Last administered on 02/11/17 20:27; Admin Dose 80 MG; Start 02/11/17 at 20:30 Aspirin (Aspirin) 81 mg DAILY PO Last administered on 02/12/17 12:10; Admin Dose 81 MG; Start 02/12/17 at 11:00 Atorvastatin Calcium (Lipitor) 40 mg HS PO ; Start 02/12/17 at 21:00 Procedures Procedures yesterday's troponin noted TTE with nl EF, no WMAs, stage 1 DD LAKSHMI TRACY MD Feb 12, 2017 13:35
[2017-02-12] MEDS ORDERED: HEPARIN 5,000 UNIT/0.5 ML VIAL SC SCH (14:00)
[2017-02-12] MEDS: AMLODIPINE 10 MG TAB PO SCH ×2 (16:00→16:07)
[2017-02-12] MEDS ORDERED: ATORVASTATIN 40 MG TAB PO SCH (21:00)
--- NOTE | 2017-02-13 20:14 | DS ---
Date/Time of Note Date/Time of Note DATE: 02/13/17 TIME: 20:10 Discharge Summary Admission/Discharge Info Admit Date/Time Feb 11, 2017 at 00:16 Discharge Date/Time Feb 12, 2017 at 15:45 Final Diagnosis chest pain, hypertensive urgency, NSTEMI Patient Condition: Fair Consults cardiology Procedures TTE 6.3 Conclusions Normal left ventricular systolic function. Normal left ventricular cavity size. Left ventricular wall thickness upper limits of normal. Ejection fraction is visually estimated at 65 %. Tissue Doppler/Mitral Doppler indices are consistent with impaired relaxation (Stage I diastolic dysfunction). No significant valvular stenosis or regurgitation seen. Unable to obtain RVSP due to minimal presence of tricuspid regurgitation. RA pressure is 3 mmHg. Hx of Present Illness This is 61-year-old female who is brought in by EMS for a cough for anxiety. When EMS arrived on the scene and they report the patient was acting anxious and is awake and alert and oriented. When bystanders inform them that there was some probable drug use by the patient. This is a noticed that the gentleman which was told to them to be the son of the patient went into the house and grabbed a big bag of individually wrap baggies with appeared to be drugs inside and ran out of the house. Patient in route had a decline in mental status where they said she had pinpoint pupils with decreased responsiveness. On arrival here. The patient is arousable to sternal rub and will say "stop it" and try to grab my hand. She will speak with me and does say she smoked some drugs tonight but she does not know what they was she says she does not know if it was meth or heroin or cocaine or a mixture. She is complaining of some chest pain and denies any headache. She says her chest "hurts" and cannot quantify it. The above history was obtained from the ED physician and ED medical record. The patient upon my examination was arousable but not cooperative and providing a history. Hospital Course 61 yo F with pmhx HTN nonadhrent to medication regimen presented with cough. Noted to be quite hypertensive and with elevated troponin. BP improved with meds (bb, ccb). Cardiology consulted for assistance/ischemia eval. 6.3 labor and delivery nurse and I had long conversation about need to remain in the hospital for further evaluation, nevertheless she left AMA the evening of 6.3. During the day, labor and delivery nurse and I explained to pt that leaving prior to completion of workup could result in permanent damage to her heart and possibly . Pt voiced understanding at time of that afternoon encounter. Home Meds Unable to Obtain Active Prescriptions or Reported Meds Primary Care Provider Care Physician No Primary Time spent on discharge: > 30 minutes LAKSHMI TRACY MD Feb 13, 2017 20:14
== END 2017-02-12 15:45 | disposition left against medical advice (07) | DRG 282 ==
LOC: E/R 19:40 → ICU 02-11 00:16 → TEL 02-11 17:09
PROVIDERS: ADMIT Family Medicine; ATTEND Family Medicine
DX: I16.9 Hypertensive crisis, unspecified (principal); I21.4 Non-ST elevation (NSTEMI) myocardial infarction; F12.929 Cannabis use, unspecified with intoxication, unspecified; D72.829 Elevated white blood cell count, unspecified; F41.9 Anxiety disorder, unspecified; R51 Headache; Z91.14 Patient's other noncompliance with medication regimen; B19.20 Unspecified viral hepatitis C without hepatic coma
CPT/HCPCS: 36415; 70450; 71010; 80053; 80306; 80307; 82550; 82553; 84484; 85025; 85610; 85730; 86704; 86709; 86803; 87081; 87340; 92610; 93005; 93306; 96374; 96375; 96376; C9113; J0360; J1644; J2310; J7040; J7070